=== PATIENT | female | born 1995 | race Caucasian/White ===

== ENCOUNTER 2017-01-20 21:03 | Emergency (ER) | payer SELFPAY ==
[2017-01-20 21:13] VITALS: BP 129/73
[2017-01-20 21:38] LABS: BILIRUBIN,URINE NEGATIVE (NEG); GLUCOSE,URINE NEGATIVE (NEG); NITRITE,URINE NEGATIVE (NEG); PH,URINE 5.5; PROTEIN,URINE NEGATIVE (NEG-TRACE); UROBILINOGEN,URINE 0.2 mg/dL (0.2 mg/dL)
[2017-01-20 21:44] LABS: BACTERIA,URINE FEW /HPF (0-FEW); RBC,URINE 0 /HPF (0-2); SQUAMOUS EPITHELIAL CELL,UR MOD /LPF
[2017-01-20] MEDS ORDERED: CEPH500T PO (22:10)
--- NOTE | 2017-01-20 22:10 | PHYS DOC ---
Past Medical History Past Medical History: No Pertinent History Past Surgical History: Tonsillectomy Alcohol Use: None Drug Use: None Adult General Chief Complaint Chief Complaint: TEST [facility] Patient is a 21 year old female with no significant medical history who presents today requesting a test. Patient states she did a test at home and it was positive but she did not trust her test. She states her last menstrual cycle was December 08, 2016. She is a 0 para 0. She states she has slight cramping. Denies any vaginal bleeding. PCP:None Review of Systems Review of Systems Constitutional: Denies fever or chills [] Eyes: Denies change in visual acuity, redness, or eye pain [] HENT: Denies nasal congestion or sore throat [] Respiratory: Denies cough or shortness of breath [] Cardiovascular: No additional information not addressed in [facility] [] GI: Request for test, slight abdominal cramping : Denies dysuria or hematuria [] Musculoskeletal: Denies back pain or joint pain [] Integument: Denies rash or skin lesions [] Neurologic: Denies headache, focal weakness or sensory changes [] Endocrine: Denies polyuria or polydipsia [] Allergies Allergies Allergies Coded Allergies Type Severity Reaction Last Updated Verified No Known Drug Allergies 01/20/17 No Physical Exam Physical Exam Constitutional: Well developed, well nourished, no acute distress, non-toxic appearance. [] HENT: Normocephalic, atraumatic, bilateral external ears normal, oropharynx moist, no oral exudates, nose normal. [] Eyes: PERRLA, EOMI, conjunctiva normal, no discharge. [] Neck: Normal range of motion, no tenderness, supple, no stridor. [] Cardiovascular:Heart rate regular rhythm, no murmur [] Lungs & Thorax: Bilateral breath sounds clear to auscultation [] Abdomen: Bowel sounds normal, soft, no tenderness, no masses, no pulsatile masses. [] Skin: Warm, dry, no erythema, no rash. [] Back: No tenderness, no CVA tenderness. [] Extremities: No tenderness, no cyanosis, no clubbing, ROM intact, no edema. [] Neurologic: Alert and oriented X 3, normal motor function, normal sensory function, no focal deficits noted. [] Psychologic: Affect normal, judgement normal, mood normal. [] Current Patient Data Vital Signs Vital Signs Date Time Temp Pulse Resp B/P (MAP) Pulse Ox O2 Delivery O2 Flow Rate FiO2 01/20/17 21:13 98.0 97 16 129/73 (91) 99 Room Air 98.0 Lab Values Laboratory Tests Test 01/20/17 21:20 Urine Collection Type Unknown Urine Color Yellow Urine Clarity Turbid Urine pH 5.5 Urine Specific [place] >=1.030 Urine Protein Negative mg/dL (NEG-TRACE) Urine Glucose (UA) Negative mg/dL (NEG) Urine Ketones (Stick) Negative mg/dL (NEG) Urine Blood Negative (NEG) Urine Nitrite Negative (NEG) Urine Bilirubin Negative (NEG) Urine Urobilinogen Dipstick 0.2 mg/dL (0.2 mg/dL) Urine Leukocyte Esterase Moderate (NEG) Urine RBC 0 /HPF (0-2) Urine WBC 11-20 /HPF (0-4) Urine Squamous Epithelial Cells Mod /LPF Urine Bacteria Few /HPF (0-FEW) Urine Mucus Marked /LPF EKG EKG [] Radiology/Procedures Radiology/Procedures [] Course & Med Decision Making Course & Med Decision Making Pertinent Labs and Imaging studies reviewed. (See chart for details) This is a healthy 21-year-old female patient who presents today requesting a test. She is 0 para 0. She states she had a positive test earlier today. Last menstrual cycle was December 08, 2016 Positive urine hCG, urine positive for UTI. Patient was discharged with cephalexin. Tylenol for pain. Follow-up with an FREIGHT [employer] BU[employer]DER which we provided in the course of this week. She was provided return precautions and discharged in stable condition. She was encouraged to start taking vitamins. Dragon Disclaimer Dragon Disclaimer This electronic medical record was generated, in whole or in part, using a voice recognition dictation system. Departure Departure Impression: Primary Impression: Additional Impression: Urinary tract infection Disposition: 01 HOME, SELF-CARE Condition: STABLE Referrals: NO PCP (PCP) AB FRAGA MD follow up as soon as you can Patient Instructions: ABCs of , Urinary Tract Infection Additional Instructions: Your test was positive. Please make arrangements to be seen by an OB/ DIRECTOR OF RETAIL. We provided you a name of one. Come back to the ED at any time symptoms worsen especially if you start having vaginal bleeding. Take Tylenol for pain, do not take ibuprofen it is not recommended in . Your urine did have infection in it. We sent you home with cephalexin, ensure you complete it. It safe for . Start taking vitamins. Scripts Cephalexin (CEPHALEXIN) 500 Mg Tablet 1 TAB PO BID, #14 TAB Prov: PRINCESS NGUYEN APRN 01/20/17 Problem Qualifiers Primary Impression: Weeks of gestation: less than 8 weeks Qualified Codes: Z3A.01 - Less than 8 weeks gestation of Additional Impression: Urinary tract infection Urinary tract infection type: acute cystitis Hematuria presence: without hematuria Qualified Codes: N30.00 - Acute cystitis without hematuria PRINCESS NGUYEN APRN January 20, 2017 22:10
== END 2017-01-20 22:23 | disposition home or self-care (01) ==
LOC: ER 21:03
DX: N30.00 Acute cystitis without hematuria (principal); Z32.01 Encounter for pregnancy test, result positive; Z3A.01 Less than 8 weeks gestation of pregnancy
CPT/HCPCS: 81001; 81025; 84703; 87086; 99283-25

== ENCOUNTER 2019-09-01 00:38 | Observation (INO) | payer OTHER ==
[~2019-09-01 00:38] MED LIST: CEPH500T PO
[2019-09-01] MEDS ORDERED: IV RINGERS,LACTATED 1000ML 1,000 ML IV PRN (00:45)
[2019-09-01] MEDS ORDERED: ACETAMINOPHEN 325 MG TABLET. PO PRN (00:45)
[2019-09-01 01:05] LABS: BILIRUBIN,URINE NEGATIVE (NEG); CLARITY,URINE CLOUDY; COLOR,URINE YELLOW; NITRITE,URINE NEGATIVE (NEG); PROTEIN,URINE NEGATIVE (NEG-TRACE); UROBILINOGEN,URINE 0.2 mg/dL (0.2 mg/dL)
[2019-09-01 01:11] LABS: BARBITURATES NEG (NEG); BENZODIAZEPINES NEG (NEG); CANNABINOIDS NEG (NEG); COCAINE NEG (NEG); METHADONE NEG (NEG); OPIATES NEG (NEG); PHENCYCLIDINE NEG (NEG)
[2019-09-01 01:12] LABS: AMPHETAMINE/METHAMPHETAMINE NEG (NEG)
[2019-09-01 01:18] LABS: BACTERIA,URINE MANY /HPF (0-FEW); WBC,URINE 0 /HPF (0-4)
[2019-09-01 01:19] LABS: SQUAMOUS EPITHELIAL CELL,UR MANY /LPF
== END 2019-09-01 01:30 | disposition home or self-care (01) ==
LOC: 3 SO LND 00:38
PROVIDERS: ADMIT Obstetrics & Gynecology; ATTEND Obstetrics & Gynecology
DX: O62.9 Abnormality of forces of labor, unspecified (principal); O26.892 Other specified pregnancy related conditions, second trimester; R51 Headache; Z3A.27 27 weeks gestation of pregnancy
CPT/HCPCS: 80307; 81001; 87086; G0378; G0379

== ENCOUNTER 2019-09-01 01:36 | Emergency (ER) | payer OTHER ==
[~2019-09-01] VITALS: Ht 172.7 cm; Wt 83.9 kg
[2019-09-01 01:55] VITALS: BP 129/73
== END 2019-09-01 02:02 | disposition left against medical advice (07) ==
LOC: ER 01:36
DX: R51 Headache (principal); Z53.21 Procedure and treatment not carried out due to patient leaving prior to being seen by health care provider

== ENCOUNTER 2021-02-23 17:14 | Emergency (ER) | payer SELFPAY ==
[~2021-02-23] VITALS: Ht 180.3 cm; Wt 110.0 kg
--- NOTE | 2021-02-23 18:09 | RAD ---
Two-view chest dated 02/23/2021 6:06 PM Comparison: None CLINICAL INDICATION: Chest pain FINDINGS: PA and lateral views obtained. Heart and mediastinal contours within normal limits. Lungs are clear. No consolidation or pleural effusion. No pneumothorax. IMPRESSION: No acute radiographic abnormality. Electronically signed by: Travis Francisco MD (02/23/2021 6:06 PM) SKY
[2021-02-23 18:35] VITALS: BP 117/62
--- NOTE | 2021-02-23 19:01 | PHYS DOC ---
Past Medical History Past Medical History: No Pertinent History (PRINCESS NGUYEN [employer]IVERSITY INTERN) Past Surgical History: Tonsillectomy (PRINCESS NGUYEN [employer]IVERSITY INTERN) Smoking Status: Current Every Day Smoker Additional Information: VAPES Alcohol Use: Occasionally Drug Use: None (PRINCESS NGUYEN [employer]IVERSITY INTERN) General Adult EDM: Chief Complaint: CHEST PAIN HPI: HPI: Patient is a 25 year old female no significant medical history who presents today complaining of epigastric chest pain nonradiating in nature, symptoms intermittently for 3 weeks. Patient denies anything specifically exacerbating or relieving the symptoms. She states symptoms began after she stopped smoking and started vaping and now she is worried that the vaping has destroyed her lungs. She states occasionally she is short of air after vaping. She rates her pain a 7 out of 10 and describes it as sharp and intermittent. (PRINCESS NGUYEN UNIVERSITY INTERN) Review of Systems: Review of Systems: Constitutional: Denies fever or chills. [] Eyes: Denies change in visual acuity. [] HENT: Denies nasal congestion or sore throat. [] Respiratory: Denies cough or shortness of breath. [] Cardiovascular: Denies chest pain or edema. [] GI: Denies abdominal pain, nausea, vomiting, bloody stools or diarrhea. [] : Denies dysuria. [] Musculoskeletal: Denies back pain or joint pain. [] Integument: Reports chest pain Neurologic: Denies headache, focal weakness or sensory changes. [] Psychiatric: Denies depression or anxiety. [] (PRINCESS NGUYEN UNIVERSITY INTERN) Heart Score: C/O Chest Pain: Yes HEART Score for Chest Pain: HEART Score for Chest Pain Response (Comments) Value History Slighlty/Non-Suspicious 0 ECG Normal 0 Age < 45 0 Risk Factors No Risk Factors 0 Troponin < Normal Limit 0 Total 0 Risk Factors: Risk Factors: DM, Current or recent (<one month) smoker, HTN, HLP, family history of CAD, obesity. Risk Scores: Score 0 - 3: 2.5% MACE over next 6 weeks - Discharge Home Score 4 - 6: 20.3% MACE over next 6 weeks - Admit for Clinical Observation Score 7 - 10: 72.7% MACE over next 6 weeks - Early Invasive Strategies (PRINCESS NGUYEN [employer]IV[employer] INTERN) Allergies: Allergies: Allergies Coded Allergies Type Severity Reaction Last Updated Verified No Known Drug Allergies 01/20/17 No (PRINCESS NGUYEN [place] [employer]N) Physical Exam: PE: Constitutional: Well developed, well nourished, no acute distress, non-toxic appearance. [] HENT: Normocephalic, atraumatic, bilateral external ears normal, oropharynx moist, no oral exudates, nose normal. [] Eyes: PERRLA, EOMI, conjunctiva normal, no discharge. [] Neck: Normal range of motion, no tenderness, supple, no stridor. [] Cardiovascular:Heart rate regular rhythm, no murmur [] Lungs & Thorax: Bilateral breath sounds clear to auscultation [] Abdomen: Bowel sounds normal, soft, no tenderness, no masses, no pulsatile masses. [] Skin: Warm, dry, no erythema, no rash. [] Back: No tenderness, no CVA tenderness. [] Extremities: No tenderness, no cyanosis, no clubbing, ROM intact, no edema. [] Neurologic: Alert and oriented X 3, normal motor function, normal sensory function, no focal deficits noted. [] Psychologic: Affect normal, judgement normal, mood normal. [] (PRINCESS NGUYEN [place] [employer]N) Current Patient Data: Vital Signs: Vital Signs Date Time Temp Pulse Resp B/P (MAP) Pulse Ox O2 Delivery O2 Flow Rate FiO2 02/23/21 17:31 98.6 80 18 131/60 (83) 99 Room Air 98.6 (PRINCESS NGUYEN [place] [employer]N) EKG: EKInterpreted by Dr. Morales sinus rhythm heart rate 78 no STEMI [] (WENDYPRINCESS [place] UNIVERSITY INTERN) Radiology/Procedures: Radiology/Procedures: []PROCEDURE: CHEST PA & LATERAL Two-view chest dated 02/23/2021 6:06 PM Comparison: None CLINICAL INDICATION: Chest pain FINDINGS: PA and lateral views obtained. Heart and mediastinal contours within normal limits. Lungs are clear. No consolidation or pleural effusion. No pneumothorax. IMPRESSION: No acute radiographic abnormality. Electronically signed by: Travis Francisco MD (02/23/2021 6:06 PM) [facility] DICTATED and SIGNED BY: TRAVIS FRANCISCO MD DATE: 02/23/21 [id number] (PRINCESS NGUYEN APRN) Course & Med Decision Making: Course & Med Decision Making Pertinent Labs and Imaging studies reviewed. (See chart for details) This is a 25-year-old female patient with no significant medical history presenting today complaining of substernal chest pain intermittently for 3 w eeks, symptoms began after she started vaping. She expresses fear that vaping has destroyed her lungs. Encourage patient to consider not vaping. EKG is negative, chest x-ray is negative. Informed patient she is young enough if she stops vaping right now she will save her lungs. Her PERC score and Wells score are negative (PRINCESS NGUYEN APRN) Course & Med Decision Making Patients Care and treatment plan provided by ER Nurse Practitioner. I was available for consult. Patient's chart reviewed. (ANA MARIA KERR I DO) Dragon Disclaimer: Santana Disclaimer: This electronic medical record was generated, in whole or in part, using a voice recognition dictation system. (PRINCESS NGUYEN APRN) PERC Rule for PE PERC Rule for PE Response (Comments) Value Age > 50: No 0 HR > 100: No 0 Sa02 on room air <95%: No 0 Unilateral leg swelling: No 0 Hemoptysis: No 0 Recent surgery or trauma: No 0 Prior PE or DVT: No 0 Hormone use: No 0 Total 0 Departure Departure Impression: Primary Impression: Chest pain Qualified Codes: R07.9 - Chest pain, unspecified Disposition: 01 HOME / SELF CARE / HOMELESS Condition: STABLE Referrals: NO PCP (PCP) TANNA COLBERT MD follow up in one week Patient Instructions: Chest Pain (Nonspecific), [id number] Additional Instructions: You were evaluated in the emergency room for chest pain, your EKG and chest x- ray are negative for any acute findings. We encourage you to stop vaping. If you stop this bad habit right now you will save your lungs. Please follow-up with your primary care doctor or the provided rubber compounder supervisor in 1 week if symptoms persist. Scripts Albuterol Sulfate (Proair Hfa) 8.5 Gm Hfa.aer.ad 2 PUFF IH PRN Q4-6HRS PRN for wheezing for 21 Days, #1 INHALER 0 Refills Prov: PRINCESS NGUYEN APRN 02/23/21 PRINCESS NGUYEN APRN Feb 23, 2021 19:00 ANA MARIA KERR 22, 2021 05:03
[2021-02-23] MEDS ORDERED: ALBU2.5V8 IH (19:02)
--- NOTE | 2021-02-23 19:35 | EKG ---
[facility] [address] [place] [address] Test Date: 2021-02-23 Test Time: 17:22:34 Pat Name: MT BETANCOURT Department: Room: Gender: F Programmer: : 1995 Requested By: JAVIER DUMONT Order Number: [id number] Reading MD: Measurements Intervals Mobile Rate: 78 P: 38 NV: 150 QRS: 28 QRSD: 82 T: 11 QT: 370 QTc: 425 Interpretive Statements SINUS RHYTHM NORMAL ECG RI6.02 No previous ECG available for comparison
== END 2021-02-23 19:13 | disposition home or self-care (01) ==
LOC: ER 17:14
DX: R07.89 Other chest pain (principal); F17.200 Nicotine dependence, unspecified, uncomplicated
CPT/HCPCS: 71046; 93005; 99283

== ENCOUNTER 2021-04-02 21:35 | Emergency (ER) | payer MEDICAID ==
[~2021-04-02] VITALS: Ht 180.3 cm; Wt 104.5 kg
[~2021-04-02 21:35] MED LIST changes: +ALBU2.5V8 IH
--- NOTE | 2021-04-03 00:22 | ED.ADGEN ---
Past Medical History Past Medical History: No Pertinent History Past Surgical History: Tonsillectomy Smoking Status: Former Smoker Alcohol Use: Occasionally Drug Use: None General Adult EDM: Chief Complaint: COUGH HPI: HPI: Patient is a 25-year-old female coming in for multiple complaints. Patient states she has had frontal headache and congestion for the past week, taking ibuprofen with some improvement. Also complaining of body aches, rhinorrhea, loss of smell. Patient states headache is better also with blowing her nose. Patient is concerned because she has not had a period in 2 months since taking a Plan B, had a negative test 1 month ago. She states she is taken Plan B before and not missed a menstrual cycle. Has not had her Covid 19 vaccine. Review of Systems: Review of Systems: All other systems within normal limits except for as noted in the HPI Allergies: Allergies: Allergies Coded Allergies Type Severity Reaction Last Updated Verified No Known Drug Allergies 01/20/17 No Physical Exam: PE: Constitutional: Well developed, well nourished, no acute distress, non-toxic appearance. [] HENT: Normocephalic, atraumatic, bilateral external ears normal, nose normal. [] Eyes: PERRLA, conjunctiva normal, no discharge. [] Neck: No rigidity, supple, no stridor. [] Cardiovascular: Regular rate and rhythm, brisk cap refill [] Lungs & Thorax: Non labored symmetric respirations, no tachypnea or respiratory distress [] Abdomen: Soft, nondistended. Skin: Warm, dry, no erythema, no rash. [] Back: Unremarkable Extremities: No deformities, range of motion grossly intact, no lower extremity edema [] Neurologic: Alert and oriented X 3, no focal deficits noted. [] Psychologic: Affect normal, judgement normal, mood normal. [] Current Patient Data: Labs: Laboratory Tests Test 04/02/21 23:13 POC Urine HCG, Qualitative Hcg negative (Negative) Vital Signs: Vital Signs Date Time Temp Pulse Resp B/P (MAP) Pulse Ox O2 Delivery O2 Flow Rate FiO2 04/02/21 22:36 98.9 98 18 123/76 (80) 100 Room Air 98.9 EKG: EKG: [] Heart Score: C/O Chest Pain: N/A Risk Factors: Risk Factors: DM, Current or recent (<one month) smoker, HTN, HLP, family history of CAD, obesity. Risk Scores: Score 0 - 3: 2.5% MACE over next 6 weeks - Discharge Home Score 4 - 6: 20.3% MACE over next 6 weeks - Admit for Clinical Observation Score 7 - 10: 72.7% MACE over next 6 weeks - Early Invasive Strategies Radiology/Procedures: Radiology/Procedures: [] Course & Med Decision Making: Course & Med Decision Making Tenderness over frontal and maxillary sinuses with nasal congestion. Discussed treatment for sinus headache. Patient swabbed for Covid and given quarantine instructions. Discussed patient's and waiting for her. To return and follow-up with her primary care doctor since she had taken Plan B and the hormones might be affecting her cycle. Santana Disclaimer: Santana Disclaimer: This electronic medical record was generated, in whole or in part, using a voice recognition dictation system. Departure Departure Impression: Primary Impression: Sinus headache Additional Impression: Person under investigation for COVID-19 Referrals: NO PCP (PCP) Additional Instructions: Recommend Mucinex, a decongestant such as Sudafed, and Afrin (do not take more than 3 days). Drink plenty of fluids with these medications. You have been tested for or diagnosed with COVID-19. It is an infection caused by a new type of coronavirus. COVID-19 will cause cold-like or mild flu symptoms in most. It can cause more severe symptoms like problems breathing in some. There is no treatment for COVID-19. The body will clear the infection over time. Self-care will help to ease discomfort. Steps to Take: Self-Care Rest as needed. Healthy habits may help you feel better. Steps include: Choose healthy foods including fruits and vegetables. Drink water throughout the day. Get plenty of sleep each night. If you smoke, try to quit. It may ease breathing. Avoid alcohol. Keep Others Healthy The virus can spread to others. Droplets are released every time you sneeze or cough. The droplets can get into the mouth, nose, or eyes of people near you and lead to infection. To lower the chances of spreading COVID-19 to others: Stay at home until your doctor has said it is safe to leave. If you tested positive this will mean staying isolated until both of the following are true: At least 7 days have passed since the start of illness. You are free of fever for at least 72 hours without the use of medicine. During this time: - Avoid public areas, events, or transportation. Do not return to work or school until your doctor has said it is safe to do so. - Call ahead if you need to go to a medical center. Let them know you may have COVID-19. It will help them guide you where to go. They may also ask you to wear a facemask when you come to the office. - If you call for emergency medical services, let them know you may have COVID- 19. While at home: - Try to avoid close contact with others. Stay about 6 feet away. - If possible, spend most of your time in a separate room from others. - Use a face mask if you will be in close contact with others such as sharing a room or vehicle. - Have someone wipe down common surfaces in the home. Use household it risk analyst every day on areas like doorknobs, counters, or sinks. - Cough or sneeze into a tissue. Throw the tissue away right after use. If a tissue is not available, cough or sneeze into your elbow. - Wash your hands often. Wash them after sneezing or coughing. Use soap and water and wash for at least 20 seconds. Alcohol based hand service line bus cleaner can be used if soap and water is not available. - Do not prepare food for others. Avoid sharing personal items like forks, spoons, or toothbrushes. - Avoid close contact with pets while you are sick. There is no evidence of the virus passing to pets. This is a safety step until more is known about this virus. Isolation can be frustrating. Social interaction can help. Keep in touch with friends and family through phone and tech options. You can still interact with others in your home, just keep a safe distance of about 6 feet. Follow-up: Your doctors office will check in with you to see if there are any changes in your health. You may be asked to keep track of symptoms to share with them. They will also let you know when you are clear to be in public again. Problems to Look Out For: Contact your doctor if your recovery is not going as you expect. Get emergency care if you have problems such as: - Trouble breathing - Nonstop chest pain or pressure - Changes in awareness, confusion, or problems waking - Lips or face have bluish color - Worsening of symptoms If you think you have an emergency, call for emergency medical services right away. As taken from [facility] Problem Qualifiers GINA CARTER MD Apr 03, 2021 00:22
[2021-04-03 00:27] VITALS: BP 139/88
--- NOTE | 2021-04-04 15:41 | NUR ---
IP: Informed pt of positive covid test and the need to quarantine for 10 days. Pt verbalized understanding.
== END 2021-04-03 00:35 | disposition home or self-care (01) ==
LOC: ER 21:35
DX: U07.1 COVID-19 (principal); R51.9 Headache, unspecified; Z87.891 Personal history of nicotine dependence
CPT/HCPCS: 81025; 99283; U0003; U0005